=== PATIENT | female | born 1950 | race Caucasian/White ===

== ENCOUNTER → 2018-04-26 14:51 | Outpatient (CLI) | payer OTHER, SELFPAY ==
[2018-04-26 14:41] VITALS: BMI 23.4
--- NOTE | 2018-04-26 14:54 | RAD_ITS ---
STUDY: X-RAY - LEFT SHOULDER REASON FOR EXAM: Female, 67 years old. Pain following a fall. TECHNIQUE: 3 view(s) of the shoulder. COMPARISON: None. FINDINGS: Normal glenohumeral articulation. Normal acromioclavicular joint. Normal acromion. Nondisplaced fracture through the surgical neck of the humerus with extension to the greater tuberosity. The soft tissue structures are unremarkable. Normal visualized pulmonary apex. RAD/Shoulder min 2 Views IMPRESSION: Nondisplaced fracture through the surgical neck of the humerus with extension to the greater tuberosity. Electronically Signed: Didier Collins MD at 15:31 EST , Service support ,
== END ==
PROVIDERS: Referring Provider Physician Assistant; Visit Provider Physician Assistant
DX: S49.92XA Unspecified injury of left shoulder and upper arm, initial encounter (principal)
CPT/HCPCS: 73030

== ENCOUNTER → 2018-05-03 11:18 | Outpatient (CLI) | payer OTHER, SELFPAY ==
[2018-05-03 11:12] VITALS: BMI 23.4
--- NOTE | 2018-05-03 11:20 | RAD_ITS ---
STUDY: X-RAY - LEFT SHOULDER REASON FOR EXAM: Female, 67 years old. Left shoulder fracture TECHNIQUE: 4 view(s) of the shoulder. COMPARISON: Previous study of April 26, 2018 FINDINGS: The left humeral head is mildly inferiorly subluxed. This may be secondary to hemarthrosis/joint effusion. Normal acromioclavicular joint. Normal acromion. There is a nondisplaced fracture of the lateral aspect of the humeral neck and greater tuberosity. Normal visualized pulmonary apex. RAD/Shoulder min 2 Views IMPRESSION: Nondisplaced fracture of the lateral aspect of the humeral neck and greater tuberosity. Fracture alignment is unchanged from the previous study. The left humeral head appears mildly subluxed relative to the glenoid labrum which may be indicative of joint effusion/hemarthrosis. Electronically Signed: Clem Preciado MD at 23:58 EST , Service support ,
== END ==
PROVIDERS: Referring Provider Orthopaedic Surgery; Visit Provider Orthopaedic Surgery
DX: S42.309A Unspecified fracture of shaft of humerus, unspecified arm, initial encounter for closed fracture (principal)
CPT/HCPCS: 73030

== ENCOUNTER → 2018-05-24 09:19 | Outpatient (CLI) | payer OTHER, SELFPAY ==
[2018-05-03 11:12] VITALS: BMI 23.4
--- NOTE | 2018-05-24 09:20 | RAD_ITS ---
STUDY: X-RAY - LEFT SHOULDER REASON FOR EXAM: Four-week fracture follow-up. TECHNIQUE: 3 view(s) of the shoulder. COMPARISON: Radiographs 05/03/2018 and 04/26/2018. FINDINGS: There is less inferior displacement of the humeral head on the current study. Normal acromioclavicular joint. Normal acromion. There is a nondisplaced fracture of the greater tuberosity/surgical neck with early callus formation. The soft tissue structures are unremarkable. Normal visualized pulmonary apex. RAD/Shoulder min 2 Views IMPRESSION: Healing proximal humeral fracture. Electronically Signed: Hilton Sharma MD at 10:43 EDT Tel , Service support ,
== END ==
PROVIDERS: Family Provider Family Medicine; PCP Family Medicine; Referring Provider Orthopaedic Surgery; Visit Provider Orthopaedic Surgery
DX: S42.302A Unspecified fracture of shaft of humerus, left arm, initial encounter for closed fracture (principal)
CPT/HCPCS: 73030

== ENCOUNTER 2018-05-30 10:00 | Outpatient (RCR) | payer OTHER, SELFPAY ==
[2018-05-03 11:12] VITALS: BMI 23.4
--- NOTE | 2018-05-14 12:20 | HP.PTEVAL ---
Patient's Visit Information CHAS YIN is a 67 year old F referred to Physical Therapy by Gurmeet Marc DO with a diagnosis of L humerus fracture. Date of Evaluation: 05/09/18 Physical Therapist: Tyrone Millard DPT - Visit Plan Frequency: 1x/Week Duration: 4 Weeks Plan: Start with PROM of L shoulder for next 4 weeks, add in pendulums, and active elbow flexion for HEP. Pt. to follow up with physician after these 4 weeks adn determine if ready to progress to AROM. - Subjective Findings: Pt. is here today for her initial evaluation with diagnosis of L humerus fracture. Pt. reports fracturing her humerus while ice skating. Pt. arrives today wearing her sling as advised. She denies N/T. Increases pain: dangling arm, attempting to use her arm, sleeping. Decreases pain: keeping her arm at her side and in the sling. Pt. reports occassional use of ice, but has reduced overall. 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 She does have a lot of bruising in her biceps region and at posterior aspect of elbow. Pt. is hopeful to get back to all household and recreational activities without issues. - Pain L shoulder Pain Intensity (Out of 10): 0 Pain Intensity Range: 0, 4 - Objective POSTURE: Pt. tends to keep her LUE in guarded posture. Pt has normal shoulder heights bilaterally. PALPATION: Pt. has no sulcus signs. Pt. has bruising throughout L shoulder and into distal humerus. Pt. had swelling in same region, non pitting. Pt. has mild edema in distal arm as well. NEURO: Pt. has normal sensation throughout bilateral UEs. Pt. has normal DTR of bilateral UEs. ROM: R shoulder- full ROM without issues. L shoulder- PROM- flexion 140deg, abd 135deg, ER at 90deg 15deg, IR at 30deg 40deg. Pt. reports pain as limiting factor, no end feel felt. Pt. has full elbow ROM without increase in symptoms. MMT: RUE- 5/5 throughout. LUE- not tested - Goals Goal 1:: Pt. to be I with HEP. Goal Time Frame: 4-6 Weeks Goal 2:: Pt. to have full PROM of L shoulder without increase in symptoms. Goal Time Frame: 4-6 Weeks Goal 3:: Pt. to have increased AROM to 75% of full motion without increase in symptoms. Goal Time Frame: 6-8 Weeks Goal 4:: Pt. to sleep throughout the night without increase in symptoms. Goal Time Frame: 4-6 Weeks Goal 5:: Pt. to complete all ADLs and house hold chores without increase in symptoms. Goal Time Frame: 6-8 Weeks - Rehabilitation Potential Physical Therapy Diagnosis: Pt. has signs and symptoms of L humerus fracture with subsequent hypombility, increased pain and weakness. Pt. would benefit from PT to restore PROM to full and after progress to AROM (after 6 weeks post injury). Rehabilitation Potential: Excellent - Anticipated Interventions Patient/Client Instruction: Educate patient on: Condition, Plan of Care, Risk Factors, Benefits of Fitness Program For the Purpose of:: To improve decision making, To facilitate caregiver knowledge, To improve self management, To prevent re-injury, To improve ability to perform tasks related to life management, To improve tolerance to ADL's Therapeutic Exercise to Include: Strength training, Power training, Body mechanics, Postural training, Flexibilty training, Passive ROM, Active ROM, Scapular Strength/Stabilization For the Purpose of:: To decrease pain, To decrease swelling/inflammation, To increase ROM, To improve nutrient delivery to tissue Cryotherapy (ice pack, ice massage): Yes For the Purpose of:: To decrease pain, To decrease swelling/inflammation, To increase ROM Thank you for the opportunity to evaluate your patient. For Medicare and Medicare HMO plans, please review the plan of care and approve it. It will need to be FAXED BACK to us at [phone] for Medicare purposes. For Medicare only, by signing this I certify the plan of care. Please let me know if there are questions or concerns regarding this plan of care. Physician Signature: Date:
--- NOTE | 2018-05-30 12:49 | HP.PTREVAL_ITS ---
Gurmeet Marc, DO, It has been my pleasure to treat CHAS YIN over the last 4 visits for L humerus fracture. Please see the progress note below for an update on the physical therapy plan of care! Subjective: pt. reports she went to physician. She reports no pain currently. Pt. arrrives not wearing her sling this date. Pt. reports physician would like her to continue with PT and in 2 weeks progress to AROM. Pt. had an xray which showed healing is occuring, but not totally healed at this point intime. Objective/Function: Physician would like patient to contiune with PT x2 per week with focus on PROM for the next two weeks then progressing to AROM at 6 weeks from fracture. Pt. was limited by ~15 deg with flexion and abduction this date passively, secondary to pain. Pt. does have increased symptoms with active lifting over her head. Plan Plan: Start with PROM of L shoulder for next 4 weeks, add in pendulums, and active elbow flexion for HEP. Pt. to follow up with physician after these 4 weeks adn determine if ready to progress to AROM. Goals Goal 1:: Pt. to be I with HEP. Goal Time Frame: 4-6 Weeks Goal Progress: Goal Met Goal 2:: Pt. to have full PROM of L shoulder without increase in symptoms. Goal Time Frame: 4-6 Weeks Goal Progress: Progressing Goal 3:: Pt. to have increased AROM to 75% of full motion without increase in symptoms. Goal Time Frame: 6-8 Weeks Goal 4:: Pt. to sleep throughout the night without increase in symptoms. Goal Time Frame: 4-6 Weeks Goal Progress: Progressing Goal 5:: Pt. to complete all ADLs and house hold chores without increase in symptoms. Goal Time Frame: 6-8 Weeks Goal Progress: Progressing Anticipated Interventions Patient/Client Instruction: Educate patient on: Condition, Plan of Care, Risk Factors, Benefits of Fitness Program For the Purpose of:: To improve decision making, To facilitate caregiver knowledge, To improve self management, To prevent re-injury, To improve ability to perform tasks related to life management, To improve tolerance to ADL's Therapeutic Exercise to Include: Strength training, Power training, Body mechanics, Postural training, Flexibilty training, Passive ROM, Active ROM, Scapular Strength/Stabilization For the Purpose of:: To decrease pain, To decrease swelling/inflammation, To increase ROM, To improve nutrient delivery to tissue Cryotherapy (ice pack, ice massage): Yes For the Purpose of:: To decrease pain, To decrease swelling/inflammation, To increase ROM Please do not hesitate to contact me at [phone] by phone or Fax: if you have questions or concerns regarding this new plan of care! Sincerely, MIGUEL ANGEL BlancoT
--- NOTE | 2018-11-07 13:52 | HP.PT.NRP ---
HP - Discharge Summary (1) - Patient Information CHAS YIN was seen in my office for initial evaluation on 05/09/18. The following Plan of Care was established for this patient: Initial Frequency: 1x/Week Initial Duration: 4 Weeks - Anticipated Interventions Patient/Client Instruction: Educate patient on: Condition, Plan of Care, Risk Factors, Benefits of Fitness Program For the Purpose of:: To improve decision making, To facilitate caregiver knowledge, To improve self management, To prevent re-injury, To improve ability to perform tasks related to life management, To improve tolerance to ADL's Therapeutic Exercise to Include: Strength training, Power training, Body mechanics, Postural training, Flexibilty training, Passive ROM, Active ROM, Scapular Strength/Stabilization For the Purpose of:: To decrease pain, To decrease swelling/inflammation, To increase ROM, To improve nutrient delivery to tissue Cryotherapy (ice pack, ice massage): Yes For the Purpose of:: To decrease pain, To decrease swelling/inflammation, To increase ROM This patient was last seen in our office 06/14/18. Pertinent comments regarding their Physical therapy will appear below: Pt. was seen for her humeral fx. Pt. has not been seen in several months and will be DC from PT at this point in time. At this point I will be discontinuing this patient from physical therapy. I would be happy to see this patient again in the future if found appropriate by the physician. Thank you! Tyrone Millard, MIGUEL ANGELT
== END 2018-05-30 19:00 | disposition home or self-care (01) ==
LOC: PT 10:00
PROVIDERS: Family Provider Family Medicine; PCP Family Medicine; Referring Provider Orthopaedic Surgery; Visit Provider Orthopaedic Surgery
DX: S42.302D Unspecified fracture of shaft of humerus, left arm, subsequent encounter for fracture with routine healing (principal)
CPT/HCPCS: 97110; 97161

== ENCOUNTER → 2018-06-20 10:15 | Outpatient (CLI) | payer OTHER, SELFPAY ==
[2018-06-20 09:07] VITALS: BMI 23.4
--- NOTE | 2018-06-20 10:18 | RAD_ITS ---
STUDY: X-RAY - LEFT SHOULDER REASON FOR EXAM: Two-month fracture follow-up. TECHNIQUE: 4 view(s) of the shoulder. COMPARISON: None. FINDINGS: There is mild inferior displacement of the humeral head. Normal acromioclavicular joint. Normal acromion. There is a nondisplaced fracture of the greater tuberosity/surgical neck with mild increased callus formation since the prior study. The soft tissue structures are unremarkable. Normal visualized pulmonary apex. RAD/Shoulder min 2 Views IMPRESSION: Healing proximal humeral fracture. Electronically Signed: Hilton Sharma MD at 15:53 EDT Tel , Service support ,
== END ==
PROVIDERS: Family Provider Family Medicine; PCP Family Medicine; Referring Provider Orthopaedic Surgery; Visit Provider Orthopaedic Surgery
DX: S42.302A Unspecified fracture of shaft of humerus, left arm, initial encounter for closed fracture (principal)
CPT/HCPCS: 73030